=== PATIENT | female | born 1965 | race Caucasian/White ===

== ENCOUNTER 2018-07-01 19:21 | Inpatient (IN) | payer MEDICARE, OTHER ==
[~2018-07-01] VITALS: Ht 180.3 cm; Wt 105.7 kg
[~2018-07-01 19:21] MED LIST: ALEN70; AMLO5 PO; CIPR500; CYCL10; GEMF600; GENVOYA TABLET1 EACH; HYDACE5325 PO; HYDMOR4; LORA1; METFORMIN HCL500 MG; Norco 5-325 Ta1 EACH PO; PREZISTA800 MG; VALACYCLOVIR500 MG
[2018-07-01 21:13] LABS: BASOPHILS ABSOLUTE AUTO 0.07 K/mm3 (0.00-0.23); BASOPHILS PERCENT AUTO 1 % (0-2); EOSINOPHILS ABSOLUTE AUTO 0.19 K/mm3 (0.00-0.68); EOSINOPHILS PERCENT AUTO 3 % (0-6); Hematocrit 34.2 % (33.0-51.0); Hemoglobin 11.2 g/dL (11.5-16.0); IMMATURE GRAN ABSOLUTE AUTO 0.02 K/mm3 (0.00-0.10); IMMATURE GRAN PERCENT AUTO 0 % (0-1); LYMPHOCYTES ABSOLUTE AUTO 1.86 K/mm3 (0.84-5.20); LYMPHOCYTES PERCENT AUTO 26 % (21-46); MONOCYTES ABSOLUTE AUTO 0.79 K/mm3 (0.16-1.47); MONOCYTES PERCENT AUTO 11 % (4-13); Mean Corpuscular HGB 32.7 pg (26.0-34.0); Mean Corpuscular HGB Conc 32.7 g/dL (31.5-36.5); Mean Corpuscular Volume 100 fL (80-100); Mean Platelet Volume 12.1 fL (9.1-12.4); NEUTROPHILS ABSOLUTE AUTO 4.24 K/mm3 (1.96-9.15); NEUTROPHILS PERCENT AUTO 59 % (41-73); Platelet Count 251 K/mm3 (150-400); RDW Coefficient Variation 13.2 % (11.7-14.2); RDW Standard Deviation 48.2 fL (35.1-46.3); Red Blood Cell Count 3.42 M/mm3 (3.80-5.20); White Blood Cell Count 7.17 K/mm3 (4.00-11.30)
[2018-07-01] MEDS ORDERED: LAMI150 PO (21:17)
[2018-07-01] MEDS ORDERED: GEMF600 PO (21:19)
[2018-07-01] MEDS ORDERED: HYDMOR4 PO (21:19)
[2018-07-01] MEDS ORDERED: CYCL10 PO (21:20)
[2018-07-01] MEDS ORDERED: HYDR10 PO (21:20)
[2018-07-01] MEDS ORDERED: LOSA50 PO (21:21)
[2018-07-01] MEDS ORDERED: INSR10I (21:22)
[2018-07-01] MEDS ORDERED: PREZCOBIX 8001 EACH PO (21:22)
[2018-07-01 21:24] LABS: Albumin, Blood 3.1 g/dL (3.4-5.0); Albumin/Globulin Ratio 0.7 (0.8-1.8); Bilirubin, Total 0.2 mg/dL (0.1-1.0); Bun/Creatinine Ratio 23.1 (12.0-20.0); Calcium, Blood 8.9 mg/dL (8.5-10.1); Creatinine, Blood 1.99 mg/dL (0.40-1.00); Globulin, Blood 4.6 g/dL (2.2-4.0); Total Protein, Blood 7.7 g/dL (6.4-8.2)
[2018-07-01] MEDS ORDERED: LEVSOD50 PO (21:24)
[2018-07-01] MEDS ORDERED: DOXE10 PO (21:25)
[2018-07-01] MEDS ORDERED: METO100 PO (21:26)
[2018-07-01] MEDS ORDERED: TORS10 PO (21:26)
[2018-07-01 21:27] LABS: International Normalized Ratio 0.93; Prothrombin Time Results 9.6 Sec (9.7-11.5)
[2018-07-01] MEDS ORDERED: ABAC300 PO (21:27)
[2018-07-01] MEDS ORDERED: VALA500 PO (21:28)
[2018-07-01] MEDS ORDERED: ALBU90OI INH (21:29)
[2018-07-01] MEDS ORDERED: ASPI81CH PO (21:29)
[2018-07-01] MEDS ORDERED: TIVICAY50 MG PO (21:29)
[2018-07-01] MEDS ORDERED: Ferosul325 MG PO (21:30)
[2018-07-01] MEDS ORDERED: PANT40 PO (21:30)
[2018-07-01] MEDS ORDERED: TRIA15CR3 TOP (21:31)
[2018-07-02] MEDS ORDERED: CHOL10002 PO (00:58)
--- NOTE | 2018-07-02 07:05 | NUR ---
recvd report from previous shift rn jacobo, pt sleeping in bed snoring. bed in lowest position, bed rails up, call light within reach
--- NOTE | 2018-07-02 07:15 | NUR ---
dr nugent to see pt
--- NOTE | 2018-07-02 07:44 | NUR ---
PT NEW ADMIT THIS SHIFT FOR RIGHT TIB/FIB FX. PT VSS SINCE ARIVING TO FLOOR, HR SINUS 80'S PER TELE MONITOR. 1LNC PLACED WHILE PT SLEEPING TO KEEP SATS >90% RLE SWOLLEN, IMMOBILIZER IN PLACE. PT IS HAVING SPASMS IN RLE, DENIED N/T, CIRC CHECKS WNL, ELEVATED PT GRADY. L KNEE ALSO SWOLLEN/PAINFUL. PAIN MGD PER EMAR. PT NPO POST MIDNIGHT. ORTHO CONSULTED, IN THIS AM. REP GIVEN TO DAY RN.
--- NOTE | 2018-07-02 09:30 | NUR ---
pt transported to imaging via stretcher for MRI
[2018-07-02 09:33] LABS: PO2 Arterial 64.1 mmHg (80-100); pH Blood Arterial 7.28 (7.35-7.45)
--- NOTE | 2018-07-02 10:00 | NUR ---
pt transported to room from MRI via stretcher, a/0 x 4, painful, will medicate per mar
[2018-07-02 12:02] LABS: Bun/Creatinine Ratio 22.4 (12.0-20.0); Calcium, Blood 8.1 mg/dL (8.5-10.1); Creatinine, Blood 2.01 mg/dL (0.40-1.00); Potassium, Blood 4.8 mmol/L (3.5-5.5)
--- NOTE | 2018-07-02 13:20 | NUR ---
Patient permission Patient gave clinical nursing instructor permission to participate in care on 07/03/18
--- NOTE | 2018-07-02 14:35 | NUR ---
Patient confirms NPO status and agrees with scheduled surgery. History, Chart, Medications and Allergies reviewed before start of procedure.Lungs clear T/O to Auscultation. PT TO SDS WITH FRIEND MELY. PT STATES IN ALOT OF PAIN RESTING QUIETLY WITH EYES SHUT. PLATE GLASS GRINDER (DORI) HAS SEEN PT. PT CANNOT GET OF BED STATES THAT BOTH OF HER LEGS ON XRAY SHOWED THEY WERE FX. PLATE GLASS GRINDER AWARE AND WILL PLACE CEDENO IN OR AND STATED THIS TO PT
--- NOTE | 2018-07-02 14:41 | NUR ---
DR MILLER ALREADY SAW PT IN PT ROOM. DR GIBBS AT BEDSIDE TO SEE PT.
--- NOTE | 2018-07-02 17:26 | NUR ---
shift summary: pt remained NPO from start of shift, painful, reporting 10/10 pain before medicating per mar as well as reassessments. pt taken to surgery via own bed approx 1430, still in surgery. home meds sent to pharmacy, pt's bar code attached and meds returned to pt's drawer. family with pt
[2018-07-02 22:56] LABS: Source, Urine Catheter
[2018-07-02 23:06] LABS: Appearance, Urine Cloudy (Clear); Bilirubin, Urine Neg (Neg); Blood, Urine 4+ (Neg); Color, Urine Yellow (P-Yellow); Glucose Qualitative, Urine 4+ (Neg); Ketones, Urine Neg (Neg); Leukocyte Esterase, Urine 2+ (Neg); Nitrite, Urine Neg (Neg); Protein, Urine 4+ (Neg); Specific Gravity, Urine 1.015 (1.003-1.022); Urobilinogen, Urine NORM (Normal)
[2018-07-02 23:13] LABS: Amorphous Mod (0-Heavy); Bacteria Mod /hpf; Red Blood Cells, Urine 0-2 /hpf (0-2); Squamous Epithelial Cells Mod /hpf (Few)
[2018-07-03 04:57] LABS: BASOPHILS ABSOLUTE AUTO 0.01 K/mm3 (0.00-0.23); BASOPHILS PERCENT AUTO 0 % (0-2); EOSINOPHILS PERCENT AUTO 0 % (0-6); Hematocrit 27.1 % (33.0-51.0); Hemoglobin 8.9 g/dL (11.5-16.0); IMMATURE GRAN ABSOLUTE AUTO 0.07 K/mm3 (0.00-0.10); IMMATURE GRAN PERCENT AUTO 1 % (0-1); LYMPHOCYTES ABSOLUTE AUTO 0.74 K/mm3 (0.84-5.20); LYMPHOCYTES PERCENT AUTO 5 % (21-46); MONOCYTES ABSOLUTE AUTO 0.77 K/mm3 (0.16-1.47); MONOCYTES PERCENT AUTO 6 % (4-13); Mean Corpuscular HGB 32.7 pg (26.0-34.0); Mean Corpuscular HGB Conc 32.8 g/dL (31.5-36.5); Mean Corpuscular Volume 100 fL (80-100); Mean Platelet Volume 11.8 fL (9.1-12.4); NEUTROPHILS ABSOLUTE AUTO 12.38 K/mm3 (1.96-9.15); NEUTROPHILS PERCENT AUTO 89 % (41-73); Platelet Count 200 K/mm3 (150-400); RDW Coefficient Variation 13.2 % (11.7-14.2); RDW Standard Deviation 47.8 fL (35.1-46.3); Red Blood Cell Count 2.72 M/mm3 (3.80-5.20); White Blood Cell Count 13.97 K/mm3 (4.00-11.30)
[2018-07-03 05:13] LABS: Bun/Creatinine Ratio 22.1 (12.0-20.0); Calcium, Blood 7.7 mg/dL (8.5-10.1); Creatinine, Blood 2.04 mg/dL (0.40-1.00); Magnesium, Blood 2.2 mg/dL (1.6-2.4); Potassium, Blood 5.6 mmol/L (3.5-5.5)
--- NOTE | 2018-07-03 07:41 | NUR ---
SHIFT SUMMARY PT POD# 1 ORIF RLE; IMMOBILIZERS TO BILAT LOWER EXT. PPPX4; EXT PWD; PT MOVES TOES. BLE ELEVATED. PAIN MANAGED PER EMAR. HTN & BLOOD GLUCOSE LEVELS MANAGED PER EMAR/ORDERS. PT UNABLE TO VOID 4 HRS AFTER CEDENO REMOVED; BLADDER SCAN OVER 500ML; ORDER FOR CEDENO, IF PT AGREEABLE, D/T RETENTION AND UA PER ISAIAS ALDRIDGE VIA PHONE ABOUT 1211. CONT. OXIMETRY IN PLACE; CPAP AND O2 VIA NC T/O SHIFT FOR SATS IN MID 90%'S. PT DENIED SOB, CP AND NAUSEA. NSR PER HARVEST FIELD TICKETER TECH. BILAT FOOT SCD'S TO BLE'S. PT TOLERATING DIET WELL. SIDE RAILS X3. REPORT GIVEN TO DAY SHIFT RN.
--- NOTE | 2018-07-03 09:49 | NUR ---
AGREE WITH SENIOR INSTRUCTOR SHIFT ASSESSMENT
--- NOTE | 2018-07-03 09:50 | NUR ---
CHERELLE NIEVES FROM [facility] HERE TO FIT PT WITH BRACES.
--- NOTE | 2018-07-03 17:07 | NUR ---
SHIFT SUMMARY NO ACUTE CHANGES THIS SHIFT. VSS. [facility] IN TODAY TO PLACE IROM BRACES TO BLE. STRICT NWB TO BLE. PT/OT WORKING WITH PATIENT. PT DOES HAVE GOOD BED MOBILITY WITH ASSISTANCE LIFTING LEGS. PAIN MANAGED WITH 2 NORCO. GRADY REG ADA DIET. IV IS SL. PT DOES HAVE A CEDENO WHICH IS PATENT AND DRAINING YELLOW URINE. NAJMA WRAP TO RLE IS CDI. PLAN IS FOR PT TO GO TO SNF AT DISCHARGE. USES CALL LIGHT APPROPRIATELY.
--- NOTE | 2018-07-03 18:38 | NUR ---
DR. LÓPEZ IN TO ROUND ON PT. PT DID END UP CHOKING ON A PIECE OF MEAT AT DINNER. PT DID HAVE EMESIS X1. DR. LÓPEZ DID STAY AND OBSERVE PT IN ROOM FOR APPROX 30 MINS AND ENCOURAGED PT TO TAKE SMALL SIPS OF WATER AND SIT UP IN HIGH FOWLERS POSITION. PT WAS ABLE TO COUGH UP PART OF MEAT, BUT NOT ALL OF IT. DR. LÓPEZ REPORTS HE IS CALLING TO CONSULT GI DOCTOR AT THIS TIME. STAFF IN ROOM TO REMAIN WITH PT. FAMILY MEMBERS AT BEDSIDE FOR SUPPORT.
--- NOTE | 2018-07-03 20:02 | NUR ---
2002: DAY SURGERY AND DR. HUTTON COMPLETE CONSULTS FOR FOREIGN BODY IN THROAT. PT REPORTS PREVIOUS EGD WITH DILATION PROCEDURE IN 2002 AND BELLS PALSY X2 IN THE PAST. SLIGHT MOUTH DROOP NOTED. PT APPEARS SOMULENT BUT ROUSABLE TO VOICE AND ABLE TO ANSWER QUESTIONS. PT TRANSFERRED VIA BED TO DAY SURGERY WITH FAMILY @ BEDSIDE; AWAIT RETURN AFTER PROCEDURE.
--- NOTE | 2018-07-03 20:07 | NUR ---
INTO [facility] FROM ROOM 217 VSS WITH LOW O2 PLACED ON O2. IV PATENT ADMISSION STARTED TO UNIT
--- NOTE | 2018-07-03 20:45 | NUR ---
07/03/182044 Wolf Ladd Bite Block Placed3-LEAD EKG REVIEWED WITH PHYSICIAN PRIOR TO START OF PROCEDURE.Patient to ENDO 1History, Chart, Medications and Allergies reviewed before start of procedure.MONITOR INTACT WITH CONTINUOUS PULSE OXIMETRY AND INTERMITTENT BP.O2 VIA N/C INTACT THROUGHOUT SEDATION/PROCEDURE.See Anesthesia record
[2018-07-03 21:17] LABS: PCO2 Arterial 46.6 mmHg (35-45); PO2 Arterial 74.8 mmHg (80-100); pH Blood Arterial 7.27 (7.35-7.45)
[2018-07-03 23:10] LABS: PO2 Arterial 109 mmHg (80-100); pH Blood Arterial 7.23 (7.35-7.45)
--- NOTE | 2018-07-04 00:42 | NUR ---
ASSUMED PT CARE AT 2225 PT ARRIVED FROM ENDO ROOM VIA STRETCHER S/P EGD SECONDARY TO ESOPHAGEAL OBSTRUCTION. PT ARRIVED INTUBATED WITH VENT SETTINGS OF AC 14, TV 400, PEEP 5, AND FIO2 50% WITH OXYGEN SATURATIONS 99%. PROPOFOL HUNG AT 30MCG/KG/MIN; PT ABLE TO OPEN EYES TO VERBAL STIMULI AND FOLLOW COMMANDS. BILATERAL SOFT WRIST RESTRAINTS APPLIED TO PROTECT VITAL TUBES/LINES. CEDENO CATH IS PATENT AND DRAINING TO GRAVITY. OG IS HOOKED TO INTERMITTENT SUCTION WITH YELLOW BILE NOTED. HELD PO MEDS, BUT CHANGED ORDERS TO PT FOR TOMORROW WHEN OG OUTPUT IS MORE MINIMAL. PT ARRIVED WITH LR INFUSING WO; WELL A BAG OF NS WITH KCL 20MEQ'S AT 80MLS/HR; HOWEVER, DID NOT START DUE TO ELEVATED POTASSIUM LEVELS. RECEIVED ORDERS FROM ISAIAS CORTÉS TO D/C AND JUST CONTINUE THE NS AT 100MLS/HR. RETRIEVED ORDERS FROM DR. HADDAD FOR VAP PROTOCOL, ABG, AND CXR. DR. HADDAD CALLED REGARDING CRITICAL ABG OF 7.23; UPDATED REGARDING RT CHANGING VENT SETTINGS TO AC 18, TV 450, AND FIO2 40%. FAMILY FRIEND WAS WAITING IN WAITING AREA UNTIL AFTER CXR AND THEN WAS WELCOMED BACK TO ROOM. QUESTIONS WERE ANSWERED REGARDING VENTILATOR AND PLANS FROM HERE. FRIEND STATED SHE WAS PLANNING ON DISCHARGING TO [facility] TOMORROW, BUT ISN'T SURE WHAT THE PLAN IS GOING TO BE FROM HERE. FRIEND IS STAYING THE NIGHT AT BEDSIDE TONIGHT SHE IS ALSO FROM [place].
[2018-07-04 04:01] LABS: BASOPHILS ABSOLUTE AUTO 0.01 K/mm3 (0.00-0.23); BASOPHILS PERCENT AUTO 0 % (0-2); EOSINOPHILS ABSOLUTE AUTO 0.02 K/mm3 (0.00-0.68); EOSINOPHILS PERCENT AUTO 0 % (0-6); Hematocrit 23.8 % (33.0-51.0); Hemoglobin 7.6 g/dL (11.5-16.0); IMMATURE GRAN ABSOLUTE AUTO 0.08 K/mm3 (0.00-0.10); IMMATURE GRAN PERCENT AUTO 1 % (0-1); LYMPHOCYTES ABSOLUTE AUTO 1.44 K/mm3 (0.84-5.20); LYMPHOCYTES PERCENT AUTO 13 % (21-46); MONOCYTES ABSOLUTE AUTO 0.89 K/mm3 (0.16-1.47); MONOCYTES PERCENT AUTO 8 % (4-13); Mean Corpuscular HGB 32.6 pg (26.0-34.0); Mean Corpuscular HGB Conc 31.9 g/dL (31.5-36.5); Mean Corpuscular Volume 102 fL (80-100); Mean Platelet Volume 11.8 fL (9.1-12.4); NEUTROPHILS PERCENT AUTO 79 % (41-73); Platelet Count 174 K/mm3 (150-400); RDW Coefficient Variation 13.2 % (11.7-14.2); RDW Standard Deviation 49.1 fL (35.1-46.3); Red Blood Cell Count 2.33 M/mm3 (3.80-5.20); White Blood Cell Count 11.54 K/mm3 (4.00-11.30)
[2018-07-04 04:19] LABS: Albumin, Blood 2.1 g/dL (3.4-5.0); Anion Gap 5 mmol/L (6-16); Blood Urea Nitrogen 51 mg/dL (8-24); Bun/Creatinine Ratio 20.9 (12.0-20.0); CO2, Blood 22 mmol/L (21-32); Calcium, Blood 7.6 mg/dL (8.5-10.1); Chloride, Blood 110 mmol/L (98-108); Creatinine, Blood 2.44 mg/dL (0.40-1.00); Glomerular Filtration Rate 22 (60-); Glucose, Blood 225 mg/dL (70-99); Phosphorus, Blood 3.3 mg/dL (2.5-4.9); Potassium, Blood 4.5 mmol/L (3.5-5.5); Sodium, Blood 137 mmol/L (136-145)
--- NOTE | 2018-07-04 06:03 | NUR ---
END OF SHIFT SUMMARY PT HAS REMAINED INTUBATED AND SEDATED. VENT SETTINGS AC 18, TV 450, PEEP 5, FIO2 30%. PROPOFOL AT 35MCG/KG/MIN. NS INFUSING AT 100MLS/HR. PT STILL ABLE TO OPEN EYES TO VERBAL STIMULI AND FOLLOW COMMANDS. MEDICATED TIMES ONE THIS SHIFT WITH PRN DILAUDID. BILATERAL HINGED BRACES INTACT AND HEELS FLOATED. OG REMAINS HOOKED UP TO LOW INTERMITTENT SUCTION WITH BROWN, UNDIGESTED GASTRIC CONTENTS NOTED IN CANNISTER. CEDENO REMAINS PATENT AND DRAINING LARGE AMOUNTS TO GRAVITY. FAMILY FRIEND REMAINED AT BEDSIDE T/O NIGHT.
--- NOTE | 2018-07-04 09:55 | NUR ---
PT EXTUBATED. RESTRAINTS REMOVED. PT ON 4L NC. PT RESPONSIVE TO VERBAL COMMANDS AND FOLLOWING DIRECTIONS. RESPIRATIONS IN HIGH 20'S. O2 SATS MAINTAINING IN THE MID 90'S. PT RESTING AND APPEARS CALM AT THIS TIME.
--- NOTE | 2018-07-04 17:05 | NUR ---
SHIFT SUMMARY: PT TAKEN OFF OF VENT THIS MORNING. 02 SATS HAVE REMAINED IN HIGH 90'S ON 2L NC. PT TOLERATED ICE AND WATER AND HAS BEEN ASKING FOR FOOD. PT ONLY COMPLAINED OF PAIN WHEN WORKING WITH PTOT. GAVE PRN NORCO. PT STATED 0/10 PAIN ON REASSESSMENT. PT CURRENTLY VISITING WITH FAMILY.
--- NOTE | 2018-07-04 18:30 | NUR ---
TRANSFERRED PT CARE: TRANSFERRED PT TO SURGICAL ROOM 213. GAVE REPORT TO DAVE BLAIR IN SURGICAL UNIT. PT TRANSPORTED WITH ALL BELONGINGS INCLUDING DENTURES.
--- NOTE | 2018-07-04 18:42 | NUR ---
PT ARRIVED TO THE ROOM AT APPROXIMATELY 1825. PT IS DROWSY BUT AWAKE AND ORIENTED. PT REPORTS PAIN IS MANAGED WHEN SHE IS AT REST. VSS. WILL CONTINUE TO MONITOR.
--- NOTE | 2018-07-04 19:23 | NUR ---
SHIFT SUMMARY PT REPORTS PAIN IS MANAGED. FAMILY AT THE BEDSIDE. NO CHANGES SINCE ARRIVAL TO THE FLOOR. VSS. WILL MONITOR UNTIL REPORT TO ONCOMING RN.
[2018-07-05 05:27] LABS: BASOPHILS ABSOLUTE AUTO 0.04 K/mm3 (0.00-0.23); BASOPHILS PERCENT AUTO 0 % (0-2); EOSINOPHILS ABSOLUTE AUTO 0.12 K/mm3 (0.00-0.68); EOSINOPHILS PERCENT AUTO 1 % (0-6); Hematocrit 24.6 % (33.0-51.0); Hemoglobin 7.9 g/dL (11.5-16.0); IMMATURE GRAN ABSOLUTE AUTO 0.04 K/mm3 (0.00-0.10); IMMATURE GRAN PERCENT AUTO 0 % (0-1); LYMPHOCYTES ABSOLUTE AUTO 1.77 K/mm3 (0.84-5.20); LYMPHOCYTES PERCENT AUTO 19 % (21-46); MONOCYTES ABSOLUTE AUTO 1.33 K/mm3 (0.16-1.47); MONOCYTES PERCENT AUTO 14 % (4-13); Mean Corpuscular HGB 32.8 pg (26.0-34.0); Mean Corpuscular HGB Conc 32.1 g/dL (31.5-36.5); Mean Corpuscular Volume 102 fL (80-100); Mean Platelet Volume 11.7 fL (9.1-12.4); NEUTROPHILS ABSOLUTE AUTO 6.13 K/mm3 (1.96-9.15); NEUTROPHILS PERCENT AUTO 65 % (41-73); Platelet Count 199 K/mm3 (150-400); RDW Coefficient Variation 13.2 % (11.7-14.2); RDW Standard Deviation 49.4 fL (35.1-46.3); Red Blood Cell Count 2.41 M/mm3 (3.80-5.20); White Blood Cell Count 9.43 K/mm3 (4.00-11.30)
[2018-07-05 05:49] LABS: Bun/Creatinine Ratio 18.3 (12.0-20.0); Calcium, Blood 8.1 mg/dL (8.5-10.1); Creatinine, Blood 1.97 mg/dL (0.40-1.00); Potassium, Blood 4.6 mmol/L (3.5-5.5)
--- NOTE | 2018-07-05 08:13 | NUR ---
SUMMARY: POD 3 ORIF RIGHT TIB/FIB AND NON-SURGICAL LEFT TIB FX FOLLOWED BY HOSPITALIST AND ORTHO SERVICES. POD 1 EGD FOREIGN BODY REMOVAL; EXTUBATED 07/04/18 AND TRANFERRED TO ROOM 213. PT APPEARS DROWSY BUT ROUSABLE OT VOICE. TOLERATING ADA SOFT DIET WITH HOB ELEBVATED AND MEDICATIONS 1 TAB AT A TIME WITH SIPS IN BETWEEN. OCCASIONAL MOIST NONPRODUCTIVE COUGH, 2L O2 VIA NC TO MAINTAIN SPO2 >90% WHILE DROWSY. PAIN WELL CONTROLLED WITH 1-2 TABS NORCO. PT MORE ALERT, USING CALL LIGHT APPROPRIATELY AND GOOD BED MOBILITY WITH 2 ASSIST. FRIEND REMAINS AT BEDSIDE FOR SUPPORT. PLAN TO DC TO SNF LOCALLY UNTIL 2 WEEK ORTHO F/U AND THEN TRAVEL BACK HOME TO [place].
--- NOTE | 2018-07-05 12:17 | NUR ---
117 CHEM BG 64 PATIENT GIVEN A FEW BITES OF ICE CREAM PRIOR TO TRANSPORT TO CT. PATIENT DENIES ANY NEW SYMPTOMS WITH THIS BLOOD SUGAR
--- NOTE | 2018-07-05 12:19 | NUR ---
RETURN FROM CT, BLOOD SUGAR RECHECKED
--- NOTE | 2018-07-05 15:07 | NUR ---
Echocardiogram completed.
--- NOTE | 2018-07-05 15:21 | NUR ---
Echocardiogram performed under my supervision by Adelina Correia.
--- NOTE | 2018-07-05 17:37 | NUR ---
SUMMARY PATIENT VERY DROWSY THROUGHOUT DAY. PATIENT AWAKENS TO VERBAL STIMULI, ORIENTED BUT ANSWERS QUESTIONS SLOWLY AND WITH SLIGHTLY SLURRED SPEECH. RIGHT CONTACT CENTER DIRECTOR WEAKER THAN LEFT AND GROSS MOVEMENT TO RIGHT ARM. SLIGHT FACIAL DROOP. PATIENT MAX ASSIST WITH REPOSITIONING. PATIENTS FRIENF MELY, AT BEDSIDE ENTIRE SHIFT AND RESPONSIVE TO PATIENT NEEDS
--- NOTE | 2018-07-05 21:57 | NUR ---
PROVIDER COMMUNICATION ISAIAS ALDRIDGE NOTIFIED PT BLOOD GLUCOSE LEVELS, PO INTAKE, AND INSULIN MANAGEMENT OVER LAST DAY+. ORDER TO HOLD HUMALOG AND GIVE 25 OF LANTUS AND CHECK CHEM LEVELS WITH AM LABS BETWEEN 3 AND 4 AM. SHERLY.
--- NOTE | 2018-07-05 23:34 | NUR ---
NOTIFIED OF PAIN AND DISCOMFORT.
[2018-07-06 04:03] LABS: Anion Gap 4 mmol/L (6-16); Blood Urea Nitrogen 34 mg/dL (8-24); Bun/Creatinine Ratio 18.9 (12.0-20.0); CHOL/HDL RATIO 7.4; CO2, Blood 22 mmol/L (21-32); Calcium, Blood 8.3 mg/dL (8.5-10.1); Chloride, Blood 112 mmol/L (98-108); Cholesterol 245 mg/dL (50-200); Glomerular Filtration Rate 31 (60-); Glucose, Blood 167 mg/dL (70-99); HDL Cholesterol 33 mg/dL (>39); LDL/HDL RATIO Unable to Calculate; Low Density Lipoprotein Chol Unable to Calculate mg/dL (0-110); Potassium, Blood 4.9 mmol/L (3.5-5.5); Sodium, Blood 138 mmol/L (136-145); Triglycerides 597 mg/dL (30-160); Very Low Density Lipoprot Chol Unable to Calculate mg/dL (6-32)
--- NOTE | 2018-07-06 06:33 | NUR ---
SHIFT SUMMARY POD# 4 ORIF R TIB/FIB FX; DRESSING CDI, HINGED BRACE TO BLE. PPPX4; ALL EXT PWD, PT DENIES N/T IN ALL EXT. RA WEAK, GROSS MOVEMENT; VERY WEAK ADJUSTER LEADER. LIMITED PERIPHERAL VISION. PT DENIES CP, NAUSEA, AND SOB. RA; SATS OVER 90%. CEDENO DRAINING WELL. PT SAT UPRIGHT AND FLUIDS WITHOUT STRAW TO DRINK. TELEMETRY IN PLACE, SR PER ELEMENTARY SCHOOL PROFESSIONAL. BILAT FOOT SCD'S. PT REPOSITIONED TOLERATED WHILE AWAKE. DR. MADRIGAL TO SEE PT ABOUT 1999; GOAL FOR SYSTOLIC BP RANGE OF 140-[address] MADRIGAL. CALL LIGHT IN REACH; PT DEMONSTRATES USE. WCTM UNTIL REPORT TO DAY SHIFT RN.
--- NOTE | 2018-07-06 08:00 | NUR ---
SPEECH THERAPY IN ROOM.
--- NOTE | 2018-07-06 09:28 | NUR ---
DISCUSSED PT'S STATUS WITH DR HARMON.
--- NOTE | 2018-07-06 18:26 | NUR ---
SHIFT SUMMARY PT IS NWB IN BOTH LEGS AND HAS BEEN UNCOMFORTABLE MUCH OF THE DAY. PT HAS BEEN REPOSITIONED FREQUENTLY. PT HAS RT SIDED WEAKNESS. SEE HX. PHYSICAL THERAPY AND SPEECH THERAPY IN TO SEE PT TODAY. PT IS EATING. CATHETER IN PLACE, SECURED, DRAINING AND OFF FLOOR. PT HAS BILATERAL BRACES TO LEGS AND SCD/S IN PLACE ON FEET.
--- NOTE | 2018-07-06 18:34 | NUR ---
PT BEEN EATING WHEN AWAKE AND ALERT WITH ASP PRECAUTIONS IN PLACE. PT BEEN MED WITH ASP PRECAUTIONS IN PLACE WITHOUT DIFFICULTY. PT BEEN REPOSITIONED MULT TIMES TODAY WITH MULT ASSIST. BED ALARM IN PLACE.
--- NOTE | 2018-07-07 07:30 | NUR ---
SHIFT SUMMARY PT A&O X4 SHIFT. POD# 5 TIB/FIB ORIF RLE; DRESSING TO RLE CDI. HINGED BRACES TO BLE'S. PPPX4; ALL EXT PWD. SLIGHTLY MORE SWELLING IN RLE. PT MAKES FREQUENT SMALL ADJUSTMENTS INDEPENDENTLY IN BED. RSW; R HAND STREET AND BUILDING DECORATOR IMPROVED AND SMALL INCREASE IN RUE ROM FROM ASSESSMENT ON 07/05/18 NOC NOTED. PT ENCOURAGED TO USE RUE ABLE. ONE NORCO GIVEN FOR GEN PAIN AND PAIN IN RLE; PT TOLERATED WELL. UPRIGHT FOR PO INTAKE/ASP PRECAUTIONS; PT FAMILY BROUGHT SOME MASHED POTOATOES FOR HER AROUND 2200. BLOOD GLUCOSE MANAGED PER ISAIAS ALDRIDGE VIA PHONE APPROX. 2140. BED BATH AND LINEN CHANGED THIS AM. FOOT SCD'S BILAT. CALL LIGHT IN REACH; BED ALARM AND SIDE RAILS X3 FOR SAFETY. VSS; TELEMETRY IN PLACE; NSR. RA; PT DENIES SOB, CP AND NAUSEA T/O SHIFT. REPORT GIVEN TO DAY SHIFT RN.
--- NOTE | 2018-07-07 09:39 | NUR ---
DR HARMON HERE TO SEE PT. DISCUSSED STATUS. REPORTS MAY D/C TELE IF NO EVENTS IN LAST 48 HOURS.
--- NOTE | 2018-07-07 09:42 | NUR ---
TELE MONITOR REPORTS NO EVENTS IN LAST 48 HOURS. SEE ORDER.
--- NOTE | 2018-07-07 12:36 | NUR ---
PT HAS ONLY ONE TAB OF HOME PILL INSTEAD OF 2. DISCUSSING WITH PHARMACY WHO REPORTS WILL CONTACT DR. HARMON.
--- NOTE | 2018-07-07 18:42 | NUR ---
SHIFT SUMMARY PT UP TO CHAIR TODAY WITH LIFT. FAMILY HAS BEEN IN TO SEE PT TODAY. CEDENO IN PLACE AND DRAINING. PT DID EAT SOME FOOD TODAY. PT HAS BEEN REPOSITIONED FREQUENTLY TODAY. MULTIPLE DR'S TO SEE PT TODAY. DRESSING CHANGED WITH DR. WATKINS. PT GIVEN BOWEL CARE. ENCOURAGED PO INTAKE.
[2018-07-08 03:52] LABS: Hematocrit 22.7 % (33.0-51.0); Hemoglobin 7.4 g/dL (11.5-16.0); Mean Corpuscular HGB 32.2 pg (26.0-34.0); Mean Corpuscular HGB Conc 32.6 g/dL (31.5-36.5); Mean Corpuscular Volume 99 fL (80-100); Mean Platelet Volume 11.4 fL (9.1-12.4); Platelet Count 283 K/mm3 (150-400); RDW Coefficient Variation 12.7 % (11.7-14.2); RDW Standard Deviation 45.7 fL (35.1-46.3); White Blood Cell Count 8.13 K/mm3 (4.00-11.30)
[2018-07-08 04:10] LABS: Bun/Creatinine Ratio 19.8 (12.0-20.0); Calcium, Blood 8.6 mg/dL (8.5-10.1); Creatinine, Blood 1.67 mg/dL (0.40-1.00); Potassium, Blood 4.2 mmol/L (3.5-5.5)
[2018-07-08 04:14] LABS: Percent Saturation 15.1 % (15.0-50.0)
--- NOTE | 2018-07-08 06:17 | NUR ---
SHIFT SUMMARY PT ORIENTED T/O SHIFT. POD#6 R TIB/FIB FX ORIF; NAJMA WRAP TO R KNEE CDI. HINGE BRACES TO BLE'S INTACT; PT NWB BILAT. C/O GENERAL DISCOMFORT/PAIN MANAGED PER EMAR. PT REPOSITIONS SELF IN BED; CALLS FOR ASSIST PRN. ASP PRECAUTIONS WITH MEDS/FLUIDS. SCD'S TO BILAT FEET. RA; VSS. RSW PERSISTS; R DISTRIBUTION ESTIMATOR WEAKER THAN L HAND DISTRIBUTION ESTIMATOR. PT RESPONDED THAT SHE IS "NOT SURE" WHEN ASKED IF VISION IS STILL IMPAIRED IN R EYE. BED ALARM AND SIDE RAILS FOR SAFETY. CALL LIGHT IN REACH; PT DEMONSTRATES USE.
--- NOTE | 2018-07-08 07:15 | NUR ---
recvd report from previous RN Montse, pt sleeping in bed, bed rails up x 3 per pt request (to support pillows around legs), call light within reach, bed in lowest position
--- NOTE | 2018-07-08 09:30 | NUR ---
dr prescott to round on pt pt refused breakfast tray, stating she "did not eat any of those things". this RN encouraged pt to fill out daily menu, assisted pt to complete this. pt only agreed to drink hot chocolet. during morning medication administration this RN will provide cheese and crackers.
--- NOTE | 2018-07-08 09:50 | NUR ---
pt requested "a different" hot chocolate, stating the chocolate provided on [facility] breakfast tray was "horrible". this RN provided a different hot cocoa mix from pantry, provided cheese and crackers and encouraged pt to eat something for diabetic reasons. pt agreed
--- NOTE | 2018-07-08 10:48 | NUR ---
encouraged pt to have her family bring her food she will eat if she is unwilling/does not like the food provided by the hospital dietary department. pt nodded in agreement, but did not say anything
--- NOTE | 2018-07-08 13:54 | NUR ---
pt working with physical therapy/occupational therapy
--- NOTE | 2018-07-08 18:43 | NUR ---
SHIFT SUMMARY: VSS, NO ACUTE CHANGES, TOLERATED PO INTAKE WELL WITH NO N/V, AMBULATED IN HALLWAYS X 4 >400 FT EACH TIME, STATES PAIN CONTROLLED PER APR, RECEIVED VISITORS X 2 THIS SHIFT, RECEIVED IV ANTIBIOTICS PER APR. PT WITH 1 LARGE BROWN BM FOLLOWING SUPPOSITORY
[2018-07-09 04:53] LABS: Hematocrit 27.6 % (33.0-51.0); Hemoglobin 9.2 g/dL (11.5-16.0); Mean Corpuscular HGB 32.1 pg (26.0-34.0); Mean Corpuscular HGB Conc 33.3 g/dL (31.5-36.5); Mean Platelet Volume 11.2 fL (9.1-12.4); NRBC ABSOLUTE 0.02 K/mm3 (0.00-0.02); NRBC Auto 0.3 /100 WBC (0.0-0.2); Platelet Count 313 K/mm3 (150-400); RDW Coefficient Variation 13.5 % (11.7-14.2); RDW Standard Deviation 47.9 fL (35.1-46.3); Red Blood Cell Count 2.87 M/mm3 (3.80-5.20); White Blood Cell Count 7.68 K/mm3 (4.00-11.30)
[2018-07-09 04:58] LABS: Mean Corpuscular Volume 96 fL (80-100)
--- NOTE | 2018-07-09 06:33 | NUR ---
SUMMARY PT HOPING FOR TRANSFER TO [facility] TODAY. WILL BE GIVING SUPPOS THIS AM PER PT REQUEST PT CONDITION REQUIRES USE OF LIFT FOR OOB.
--- NOTE | 2018-07-09 18:42 | NUR ---
SUMMARY NO ACUTE CHANGES THROUGH THE DAY. DRSG TO RIGHT LEG WAS CHANGED THIS AM BY . BRACES REMAIN IN PLACE. CIRC WNL. PAIN WNL. PT HAS REFUSED PAIN MEDICATION, STATES HER PAIN IS TOLERABLE AND SHE "DOES NOT NOT WANT ANYTHING THAT WILL MAKE HER NOT POOP". PT HAS BEEN GIVEN BOWEL CARE TODAY AND HAS HAD APPROX 3 LG BM'S. CEDNEO REMAINS PATENT, DRAINING CLEAR YELLOW URINE. FLEXORIL 5 MG WAS ORDERED FOR MUSCLE SPASMS, FIRST DOSE ADMISTERED THIS EVENING. PT HAS BEEN UP TO THE CHAIR TWICE TODAY. SHE HAS REFUSED BUT IS ATTEMPTING TO BE COOPERATIVE. PT HAS BEEN ANXIOUS AND A LITTLE IRRITABLE BUT WILL COMMUNICATE MOST OF HER NEEDS. CONSTANT ENCOURAGEMENT NEEDED. CALL LIGHT IS IN REACH. REPORT GIVEN TO VASHTI ACOSTA.
--- NOTE | 2018-07-09 20:01 | NUR ---
recvd report from previous shift RN Analy, student nurse Sammi will assist in pt care, this RN will supervise. Pt gave consent for this. Pt transferred to bed with gita lift, a/o x 4, bed in lowest position, call light within reach, bed rails up x 3 per pt's request to support operative limb and affect RUE
--- NOTE | 2018-07-10 06:36 | NUR ---
SHIFT SUMMARY PT IS POD 8 R TIBIA/FIBULA FRACTURE REPAIR. VSS THIS SHIFT, PT TRENDING HYPERTENSIVE, MEDICATED PER ORDERS. 02 SAT >90% ON RA. PT REMAINED IN BED THIS SHIFT, REPOSITIONED FOR COMFORT, LIMBS ELEVATED ON PILLOWS, INCLUDING RUE AFFECTED BY STROKE ON 07/05/18. PT REPORTS PAIN WNL, DENIES N/V. PT TOLERATING MECHANICAL SOFT DIET. HINGED IMMOBILIZERS TO BLE STILL IN PLACE, CAPILLARY REFILL AND SENSATION WNL. WILL CONTINUE TO MONITOR
--- NOTE | 2018-07-10 19:17 | NUR ---
SHIFT SUMMARY PT A&OX4, VSS, HTN MEDS GIVEN PER EMAR, POD8 TIB/FIB ORIF, BLE IMMOBILIZERS ON, NWB, JOHN LIFT TO CHAIR. UP TO CHAIR THIS AM. DENIES PAIN. CEDENO PATENT & DRAINING YELLOW URINE. GRADY PO, DENIES N&V, ASP PRECAUTIONS FOR MEALS; CBG CNI. R HAND WEAKNESS. REPORT GIVEN TO BRI ACOSTA.
--- NOTE | 2018-07-11 02:12 | NUR ---
WHILE IN ROOM WITH ME.
--- NOTE | 2018-07-11 04:29 | NUR ---
SUMMARY: NO ACUTE CHANGE TONIGHT. PT ABLE TO SLEEP WELL. POSITIONED FOR COMFORT. IMMOBILIZERS WNL. PT MEDICATED WITH FLEXARIL BEFORE SLEEP AND X1 FOR BACK PAIN. PT MOVES WELL IN BED WITH 1 ASSIST. NO BM TONIGHT, BOWEL CARE GIVEN AT BEDTIME. CEDENO DRAINING. NO ACUTE CONCERNS AT THIS TIME. WILL CTM AND REPORT TO DAY RN.
--- NOTE | 2018-07-11 18:31 | NUR ---
CALLED TO GIVE REPORT [phone] TT MJ. ON HOLD FOR 10 MINUTES AND SENT TO VOICE MAIL. CALLED BACK AND TT MJ AND SHE SAID THE NURSE IS NOT AVAILABLE. I EXPLAINED I AM CALLING TO GIVE REPORT AND WILL BE AT [phone] UNTIL 1914 AND THEN I AM LEAVING FOR THE DAY AND THE NURSE WILL BE UNABLE TO RECEIVE REPORT TODAY. MJ SAID SHE UNDERSTOOD AND TOOK MY NAME AND NUMBER.
--- NOTE | 2018-07-11 19:19 | NUR ---
DISCHARGE SUMMARY PT LEFT WITH TRANSPORT TO [facility] [place] VIA [employer] [facility] WITH ALL PERSONAL POSSESSIONS. FAMILY IS TAKING THE REST OF PT PERSONAL POSSESSIONS HOME. REPORT GIVEN TO ESTER WHEN SHE RETURNED MY CALL AT 1900. IV DC'Isael.
--- NOTE | 2018-07-12 09:51 | NUR ---
ON 07/11/18 AT APROX 1700 TRANSPORT ARRIVED TO DESKTOP SUPPORT ENGINEER PT FOR TRANSPORT TO [facility] [place] [facility]. TRANSPORT BROUGHT A WHEELCHAIR THAT DID NOT HAVE LEG EXTENDERS, TRANSPORT DISPATCH RIDE TO CARE WAS AWARE THAT PT REQUIRED EXTENDERS DUE TO PT BEING IN BLE IMMOBILIZERS. DISCUSSED WITH AIDEN MONTALVO DAHLEN SHE STATED THAT IF WE COULD PROVIDE THEM WITH EXTENDERS THAT THEY WOULD FED-EX THEM BACK TO [place] ONCE THE PT ARRIVED AND IF NOT THE PT WOULD HAVE TO WAIT FOR TRANSPORT ON A DIFFERENT DAY. NURSING EMERGENCY MEDICAL TECHNICIAN/DRIVER FOUND EXTENDERS, THESE WERE PUT ON CHAIR BY THIS RN. USING JOHN LIFT PT POSITIONED IN CHAIR WITH LEGS EXTENDED AND PILLOWS PLACED UNDER PT AND BLE. PT MEDICATED WITH 5MG NORCO THAT PT INITALLY REFUSED BUT PRIMARY RN EDUCATED ON THE NEED TO MEDICATE PRIOR TO A THREE HOUR TRANSPORT. PT AND FAMILY AGREED TO TRANSPORT ONCE THE EXTENDERS WERE PLACED AND PT DENIED ANY DISCOMFORT ONCE IN THE CHAIR PRIOR TO DC.
== END 2018-07-11 18:30 | DRG 492 ==
LOC: ER 19:21 → ERHOLD 21:27 → ICUW 21:27 → SURS 21:27 → ICUW 07-03 22:30 → SURS 07-04 18:20
PROVIDERS: Anesthesiology; Emergency Medicine; Internal Medicine; Nurse Practitioner Acute Care; Orthopaedic Surgery; ADMIT Family Medicine
PROC: 0S9C3ZZ Drainage of Right Knee Joint, Percutaneous Approach (ICD-10-PCS; 2018-07-02)
PROC: 0QSG04Z Reposition Right Tibia with Internal Fixation Device, Open Approach (ICD-10-PCS; principal; 2018-07-02 14:30)
PROC: 0DC38ZZ Extirpation of Matter from Lower Esophagus, Via Natural or Artificial Opening Endoscopic (ICD-10-PCS; 2018-07-03)
PROC: 5A1935Z Respiratory Ventilation, Less than 24 Consecutive Hours (ICD-10-PCS; 2018-07-03)
PROC: 30233N1 Transfusion of Nonautologous Red Blood Cells into Peripheral Vein, Percutaneous Approach (ICD-10-PCS; 2018-07-08)
DX: S82.141A Displaced bicondylar fracture of right tibia, initial encounter for closed fracture (principal); J96.01 Acute respiratory failure with hypoxia; G92 Toxic encephalopathy; I63.9 Cerebral infarction, unspecified; S82.122A Displaced fracture of lateral condyle of left tibia, initial encounter for closed fracture; B20 Human immunodeficiency virus [HIV] disease; E87.1 Hypo-osmolality and hyponatremia; N18.4 Chronic kidney disease, stage 4 (severe); F11.20 Opioid dependence, uncomplicated; W01.0XXA Fall on same level from slipping, tripping and stumbling without subsequent striking against object, initial encounter; I27.20 Pulmonary hypertension, unspecified; M81.0 Age-related osteoporosis without current pathological fracture; J45.909 Unspecified asthma, uncomplicated; Z79.4 Long term (current) use of insulin; Z79.82 Long term (current) use of aspirin; F17.210 Nicotine dependence, cigarettes, uncomplicated; D63.1 Anemia in chronic kidney disease; E03.9 Hypothyroidism, unspecified; E78.5 Hyperlipidemia, unspecified; S82.831A Other fracture of upper and lower end of right fibula, initial encounter for closed fracture; G89.4 Chronic pain syndrome; K21.9 Gastro-esophageal reflux disease without esophagitis; I12.9 Hypertensive chronic kidney disease with stage 1 through stage 4 chronic kidney disease, or unspecified chronic kidney disease; E86.0 Dehydration; T18.128A Food in esophagus causing other injury, initial encounter; K22.4 Dyskinesia of esophagus; E10.22 Type 1 diabetes mellitus with diabetic chronic kidney disease; E10.65 Type 1 diabetes mellitus with hyperglycemia; E66.9 Obesity, unspecified; Z68.30 Body mass index [BMI] 30.0-30.9, adult; M47.819 Spondylosis without myelopathy or radiculopathy, site unspecified; R53.1 Weakness; I77.9 Disorder of arteries and arterioles, unspecified; E10.649 Type 1 diabetes mellitus with hypoglycemia without coma; R40.0 Somnolence
CPT/HCPCS: 29505; 31500; 31720; 36415; 36600; 70450; 71045; 73560-LT; 73562-RT; 73610; 73700; 73721; 76377; 80048; 80053; 80061; 80069; 81001; 82728; 82803; 82947; 83540; 83550; 83735; 85025; 85027; 85610; 86850; 86900; 86901; 86923; 87070; 87086; 87205; 92610; 93005; 93010; 93306; 93880; 94002; 94003; 94660; 94762; 96374-59; 96375-59; 96376-59; 97110; 97112; 97162; 97164; 97166; 97530; 97535; 99285-25; A9270-GY; C1713; C1769; C9113; J0360; J1100; J1170; J1610; J1650; J1815; J2250; J2310; J2370; J2405; J2704; J2710; J3010; J3370; J3480; J7030; J7120; P9016

== ENCOUNTER 2019-11-05 01:11 | Emergency (ER) | payer MEDICARE, OTHER ==
[~2019-11-05] VITALS: Ht 182.9 cm; Wt 86.2 kg
[~2019-11-05 01:11] MED LIST changes: +ABAC300 PO; +ALBU90OI INH; +ASPI81CH PO; +CHOL10002 PO; +CYCL10 PO; +DOXE10 PO; +Ferosul325 MG PO; +GEMF600 PO; +HYDMOR4 PO; +HYDR10 PO; +INSR10I; +LAMI150 PO; +LEVSOD50 PO; +LOSA50 PO; +METO100 PO; +PANT40 PO; +PREZCOBIX 8001 EACH PO; +TIVICAY50 MG PO; +TORS10 PO; +TRIA15CR3 TOP; +VALA500 PO
== END 2019-11-05 07:01 | disposition left against medical advice (07) ==
LOC: ER 01:11
DX: Z53.21 Procedure and treatment not carried out due to patient leaving prior to being seen by health care provider (principal)
CPT/HCPCS: 73562-LT